=== PATIENT | male | born 1955 | race Two or more races ===

== ENCOUNTER 2016-12-10 03:43 | Emergency (ER) | payer BC, OTHER ==
[~2016-12-10] VITALS: Ht 182.9 cm; Wt 109.8 kg
[~2016-12-10 03:43] MED LIST: ASPI325T4 PO; DUTA0.5C PO; ESOM40CA PO; LISI10TA2 PO; LOTE5GEL OP; SIMV20TA3 PO
[2016-12-10 04:04] VITALS: BP 138/68
[2016-12-10] MEDS ORDERED: IBUPROFEN 800 MG TABLET. PO ONE (05:30)
[2016-12-10] MEDS ORDERED: SMZ/TMP 800/160MG TABLET. PO ONE (05:30)
[2016-12-10] MEDS ORDERED: SULF1TAB24 PO (05:59)
[2016-12-10] MEDS ORDERED: HYDR-971 PO (05:59)
--- NOTE | 2016-12-10 05:59 | PHYS DOC ---
Past Medical History Past Medical History: High Cholesterol, Hypertension, Kidney Stone Additional Past Medical Histor: torn retina, enlarged prostate Past Surgical History: Knee Replacement, Other Additional Past Surgical Histo: stent for kidney stones, torn retina surgery, sinus ,hernia Alcohol Use: Rarely Drug Use: None Adult General Chief Complaint Chief Complaint: THUMB HPI HPI Patient is a 61 year old female who presents with right thumb pain. Patient reports after he got a 40 yesterday his right thumb was painful and stiff. His squeezed it, and a small amount of pus came out through the lesion on the thumb. No clear trauma to the area, however patient says he works a lot with his hands he could've injured it or had a foreign body in it somehow. He has not taken anything for symptoms prior to arrival. No fever, no other complains. Review of Systems Review of Systems Constitutional: Denies fever or chills Respiratory: Denies cough or shortness of breath Cardiovascular: Denies chest pain GI: Denies abdominal pain, nausea, vomiting, or diarrhea Musculoskeletal: R thumb pain, drainage Neurologic: Denies headache, focal weakness or sensory changes Current Medications Current Medications Current Medications Medications (Trade) Dose Ordered Sig/Lisa Start Time Stop Time Status Last Admin Dose Admin Ibuprofen (Motrin) 800 mg 1X ONCE 12/10/16 05:30 12/10/16 05:31 DC 12/10/16 05:18 800 MG Trimethoprim/ Sulfamethoxazole (Bactrim Ds) 1 tab 1X ONCE 12/10/16 05:30 12/10/16 05:31 DC 12/10/16 05:31 1 TAB Allergies Allergies Allergies Coded Allergies Type Severity Reaction Last Updated Verified iodine Allergy Intermediate 02/02/16 Yes Physical Exam Physical Exam Constitutional: Well developed, well nourished, no acute distress, non-toxic appearance HENT: Normocephalic, atraumatic Eyes: EOMI, conjunctiva normal, no discharge Neck: No stridor Pulmonary: No respiratory distress Skin: Warm, dry Neurologic: Alert and oriented X 3 Musculoskeletal: R thumb mildly swollen and TTP, brisk cap refill, motor function preserved, no pain with passive extension; 3mm wound, unable to express appreciable amount of pus Current Patient Data Vital Signs Vital Signs Date Time Temp Pulse Resp B/P Pulse Ox O2 Delivery O2 Flow Rate FiO2 12/10/16 04:04 98.3 77 20 138/68 96 Room Air 98.3 EKG EKG [] Radiology/Procedures Radiology/Procedures X-ray R hand: IMPRESSION: No acute bony abnormality is detected. Course & Med Decision Making Course & Med Decision Making Pertinent Labs and Imaging studies reviewed. (See chart for details) Patient is 61-year-old male who presents with right thumb pain and swelling. Appears to be felon. X-ray of right hand ordered to rule out foreign body. No foreign body noted. I discussed with Dr. Cutler; as it has been draining, will not perform I&D at this time. Will cover with Bactrim per his recommendation. Oral pain medication ordered. Patient given instructions for close outpatient follow-up and strict return precautions. Dragon Disclaimer Dragon Disclaimer This electronic medical record was generated, in whole or in part, using a voice recognition dictation system. Departure Departure Impression: Primary Impression: Felon of finger of right hand Disposition: HOME, SELF-CARE Condition: STABLE Referrals: NO PCP (PCP) MILIND CUTLER II, MD Patient Instructions: Fingertip Infections Additional Instructions: Thank you for allowing us to provide care today in the Emergency Department. Take the provided medication as directed. Use caution when taking the pain medication as it can make you drowsy. Schedule a follow up appointment with an orthopedic surgeon using the provided contact information. You need to be seen this week for further evaluation. Return promptly to the Emergency Department if you develop any new or concerning symptoms as we discussed. Scripts Sulfamethoxazole/Trimethoprim (Bactrim Ds Tablet)1 Each Tablet1 Tab PO BID #20 TAB Prov:EVERETTE FORREST MD 12/10/16 Hydrocodone/Apap 5-325 (Irving 5-325 Tablet)1 Each Tablet1 Tab PO PRN Q6HRS PRN PAIN #20 TAB Prov:EVERETTE FORREST MD 12/10/16 EVERETTE FORREST MD Dec 10, 2016 05:59
--- NOTE | 2016-12-10 07:18 | RAD ---
Right hand, 3 views, 12/10/2016: History: Thumb swelling No fracture or dislocation is identified. There are minimal degenerative changes at scattered interphalangeal joints and the first MCP joint. A tiny 2 mm radiopaque foreign body is projected over the distal end of the index finger at the level of the terminal tuft. This is reportedly not the area of current clinical concern. IMPRESSION: No acute bony abnormality is detected.
== END 2016-12-10 06:15 | disposition home or self-care (01) ==
LOC: ER 03:43
DX: L03.011 Cellulitis of right finger (principal); E78.00 Pure hypercholesterolemia, unspecified; I10 Essential (primary) hypertension; N40.0 Benign prostatic hyperplasia without lower urinary tract symptoms; Z88.8 Allergy status to other drugs, medicaments and biological substances; Z87.442 Personal history of urinary calculi; Z96.0 Presence of urogenital implants
CPT/HCPCS: 73130; 99284

== ENCOUNTER 2019-09-07 08:59 | Emergency (ER) | payer OTHER ==
[~2019-09-07 08:59] MED LIST changes: -ASPI325T4 PO; +ASPI325T8 PO; +HYDR-3164 PO; +SIMV20TA18 PO; -SIMV20TA3 PO; +SULF1TAB24 PO
[2019-09-07 10:15] VITALS: BP 120/61
[2019-09-07] MEDS ORDERED: KETOROLAC 15 MG/ML VIAL. IV STA (10:35)
[2019-09-07] MEDS ORDERED: MORPHINE SULFATE 10 MG/ML VIAL. IV STA (10:35)
--- NOTE | 2019-09-07 10:40 | PHYS DOC ---
Past Medical History Past Medical History: High Cholesterol, Hypertension, Kidney Stone Additional Past Medical Histor: torn retina, enlarged prostate Past Surgical History: Knee Replacement, Other Additional Past Surgical Histo: stent for kidney stones, torn retina surgery, sinus ,hernia Alcohol Use: Rarely Drug Use: None Adult General Chief Complaint Chief Complaint: FLANK PAIN HPI HPI Patient is a 64 year old male who presents with cough, runny nose, body aches, loss of appetite has been ongoing for last week (Thursday). He states he's also been having fevers. The patient states he's started developing last couple days of right-sided flank pain. Patient is a history kidney stones concerned about having another kidney stone. Denies nausea. Complete ROS were reviewed and found to be within normal limits, except as documented in the HPI Current Medications Current Medications Current Medications Medications (Trade) Dose Ordered Sig/Lisa Start Time Stop Time Status Last Admin Dose Admin Ketorolac Tromethamine (Toradol 15mg Vial) 10 mg 1X STAT 09/07/19 10:35 09/07/19 10:37 DC 09/07/19 11:19 10 MG Morphine Sulfate (Morphine Sulfate) 5 mg 1X STAT 09/07/19 10:35 09/07/19 10:37 DC Sodium Chloride 1,000 ml @ 1,000 mls/hr 1X ONCE 09/07/19 10:45 09/07/19 11:44 DC 09/07/19 11:19 1,000 MLS/HR Allergies Allergies Allergies Coded Allergies Type Severity Reaction Last Updated Verified iodine Allergy Intermediate 02/02/16 Yes Physical Exam Physical Exam Constitutional: Well developed, well nourished, no acute distress, non-toxic appearance. [] HENT: Normocephalic, atraumatic, bilateral external ears normal, oropharynx moist, no oral exudates, nose normal. [] Eyes: PERRLA, EOMI, conjunctiva normal, no discharge. [] Neck: Normal range of motion, no tenderness, supple, no stridor. [] Cardiovascular:Heart rate regular rhythm, no murmur [] Lungs & Thorax: Bilateral breath sounds clear to auscultation [] Abdomen: Bowel sounds normal, soft, R flank tenderness, no masses, no pulsatile masses. [] Skin: Warm, dry, no erythema, no rash. [] Back: Right sided lower back tenderness, no CVA tenderness. [] Neurologic: Alert and oriented X 3, normal motor function, normal sensory function, no focal deficits noted. [] Psychologic: Affect normal, judgement normal, mood normal. [] Current Patient Data Vital Signs Vital Signs Date Time Temp Pulse Resp B/P (MAP) Pulse Ox O2 Delivery O2 Flow Rate FiO2 09/07/19 10:15 98.5 76 16 120/61 (80) 94 98.5 Lab Values Laboratory Tests Test 09/07/19 09:47 09/07/19 10:24 Urine Collection Type Unknown Urine Color [place] Urine Clarity Clear Urine pH 5.0 Urine Specific [place] 1.025 Urine Protein Negative mg/dL (NEG-TRACE) Urine Glucose (UA) Negative mg/dL (NEG) Urine Ketones (Stick) Negative mg/dL (NEG) Urine Blood Negative (NEG) Urine Nitrite Negative (NEG) Urine Bilirubin Negative (NEG) Urine Urobilinogen Dipstick 0.2 mg/dL (0.2 mg/dL) Urine Leukocyte Esterase Negative (NEG) Urine RBC 0 /HPF (0-2) Urine WBC Occ /HPF (0-4) Urine Squamous Epithelial Cells Few /LPF Urine Amorphous Sediment Present /HPF Urine Bacteria 0 /HPF (0-FEW) Urine Mucus Marked /LPF White Blood Count 4.3 x10^3/uL (4.0-11.0) Red Blood Count 5.08 x10^6/uL (4.30-5.70) Hemoglobin 15.8 g/dL (13.0-17.5) Hematocrit 45.9 % (39.0-53.0) Mean Corpuscular Volume 90 fL (79-100) Mean Corpuscular Hemoglobin 31 pg (25-35) Mean Corpuscular Hemoglobin Concent 34 g/dL (31-37) Red Cell Distribution Width 13.8 % (11.5-14.5) Platelet Count 209 x10^3/uL (140-400) Neutrophils (%) (Auto) 56 % (31-73) Lymphocytes (%) (Auto) 30 % (24-48) Monocytes (%) (Auto) 12 % (0-9) H Eosinophils (%) (Auto) 2 % (0-3) Basophils (%) (Auto) 1 % (0-3) Neutrophils # (Auto) 2.4 x10^3/uL (1.8-7.7) Lymphocytes # (Auto) 1.3 x10^3/uL (1.0-4.8) Monocytes # (Auto) 0.5 x10^3/uL (0.0-1.1) Eosinophils # (Auto) 0.1 x10^3/uL (0.0-0.7) Basophils # (Auto) 0.0 x10^3/uL (0.0-0.2) Sodium Level 137 mmol/L (136-145) Potassium Level 4.1 mmol/L (3.5-5.1) Chloride Level 101 mmol/L (98-107) Carbon Dioxide Level 27 mmol/L (21-32) Anion Gap 9 (6-14) Blood Urea Nitrogen 12 mg/dL (8-26) Creatinine 0.8 mg/dL (0.7-1.3) Estimated GFR (Cockcroft-Gault) 98.0 BUN/Creatinine Ratio 15 (6-20) Glucose Level 100 mg/dL (70-99) H Calcium Level 9.4 mg/dL (8.5-10.1) Total Bilirubin 0.4 mg/dL (0.2-1.0) Aspartate Amino Transferase (AST) 59 U/L (15-37) H Alanine Aminotransferase (ALT) 60 U/L (16-63) Alkaline Phosphatase 79 U/L (46-116) Total Protein 7.9 g/dL (6.4-8.2) Albumin 3.9 g/dL (3.4-5.0) Albumin/Globulin Ratio 1.0 (1.0-1.7) Procalcitonin < 0.10 ng/mL (0.00-0.10) Laboratory Tests 09/07/19 10:24 Laboratory Tests 09/07/19 10:24 EKG EKG [] Radiology/Procedures Radiology/Procedures [facility] [address] [place] [address] IMAGING REPORT Signed PATIENT: UZMA FERRER ACCOUNT: [id number] : 1955 LOCATION: ER AGE: 64 SEX: M EXAM STATUS: REG ER ORD. PHYSICIAN: FAIZAN ESPINO APRN REASON: R sided Flank pain PROCEDURE: CT ABDOMEN PELVIS WO CONTRAST CT ABDOMEN PELVIS WO CONTRAST History: Right flank pain. Technique: Noncontrast examination of the abdomen and pelvis. Coronal and sagittal reconstructions were performed. Exposure: One or more of the following individualized dose reduction techniques were utilized for this examination: 1. Automated exposure control 2. Adjustment of the mA and/or kV according to patient size 3. Use of iterative reconstruction technique. Comparison: October 08, 2013. Findings: Lower chest: No consolidation or pleural effusion. Abdomen and pelvis: Hepatic steatosis with focal fatty sparing along the gallbladder fossa. The spleen, adrenal glands, pancreas and gallbladder are unremarkable. Normal noncontrast appearance of the kidneys. No hydronephrosis. No renal, ureteral or urinary bladder stone. Decompressed urinary bladder. Colonic diverticulosis. Normal appendix. No evidence of bowel obstruction. No pathologic lymphadenopathy. No ascites. Large left inguinal fat containing hernia. Small right inguinal fat containing hernia. Tiny umbilical fat-containing hernia. Bones: No pathologic osseous lesions. Multilevel lumbar spondylosis. Impression: 1. No acute intra-abdominal or pelvic pathology. No obstructing urolithiasis. 2. Hepatic steatosis. Electronically signed by: Dwight Guillermo DO (09/07/2019 11:03 AM) [id number] DICTATED and SIGNED BY: DWIGHT GUILLERMO DO DATE: 09/07/19 1103 [][facility] [address] [place] [address] IMAGING REPORT Signed PATIENT: UZMA FERRER ACCOUNT: [id number] : 1955 LOCATION: ER AGE: 64 SEX: M EXAM STATUS: REG ER ORD. PHYSICIAN: FAIZAN ESPINO APRN REASON: cough, fever PROCEDURE: CHEST PA & LATERAL Chest, PA and Lateral: Technique: PA and lateral views of the chest were obtained. History: Cough, fever. Comparison: 02/02/2016. Findings: The cardiomediastinal silhouette grossly appears unremarkable. Mild bibasilar lung airspace opacities likely atelectasis or infiltrates. IMPRESSION: Minimal bibasilar lung airspace opacities likely atelectasis or infiltrates. Electronically signed by: Laci Le MD (09/07/2019 11:34 AM) [id number] DICTATED and SIGNED BY: LACI LE MD DATE: 09/07/19 1134 Course & Med Decision Making Course & Med Decision Making Pertinent Labs and Imaging studies reviewed. (See chart for details) Will get labs, CT, Chest x-ray and urine. Will also give supportive care. I am concerned that patient has had the flu over the last week. Will check for post- influenza pneumonitis and Will also get CT to rule out kidney stone. Labs were unremarkable. Chest x-ray shows pneumonia will place on Doxycycline. Dragon Disclaimer Dragon Disclaimer This electronic medical record was generated, in whole or in part, using a voice recognition dictation system. Departure Departure Impression: Primary Impression: Pneumonia Disposition: HOME, SELF-CARE Condition: STABLE Referrals: NO PCP (PCP) Patient Instructions: Pneumonia, Adult Additional Instructions: Thank you for visiting [facility]. We appreciate you trusting us with your care. If any additional problems come up don't hesitate to return to visit us. Please follow up with your primary care provider so they can plan additional care if needed and know about the problem that you had. If symptoms worsen come back to the Emergency Department. Any concerning symptoms that start such as chest pain, shortness of air, weakness or numbness on one side of the body, running high fevers or any other concerning symptoms return to the ER. Please fill your medications at any pharmacy and follow the prescription instructions. Please drink plenty of fluids. If unable to keep fluids down please return to ER. Please get Tylenol and Ibuprofen over the counter. Give each medication every 6 hours as directed by the medication labels. In order to utilize the peak of the medications stagger the medications to where the child is getting one of the medications every 3 hours. For example if you give Ibuprofen at 3 PM, you then give Tylenol at 6 PM and Ibuprofen again at 9 PM, and then Tylenol at midnight. Please get Zyrtec over the counter and take per label instructions for runny nose. Scripts Doxycycline Hyclate (DOXYCYCLINE HYCLATE) 100 Mg Capsule 1 CAP PO BID for 10 Days, #20 CAP Prov: ESPINOFAIZAN APRN 09/07/19 Problem Qualifiers Primary Impression: Pneumonia Pneumonia type: due to unspecified organism Laterality: right Lung location: lower lobe of lung Qualified Codes: J18.9 - Pneumonia, unspecified organism FAIZAN ESPINO APRN Sep 07, 2019 10:40
[2019-09-07] MEDS ORDERED: IV NORMAL SALINE 1000ML BAG 1,000 ML IV ONE (10:45)
[2019-09-07 10:50] LABS: BASO % 1 % (0-3); EOS # 0.1 x10^3/uL (0.0-0.7); EOS % 2 % (0-3); HEMATOCRIT 45.9 % (39.0-53.0); HEMOGLOBIN 15.8 g/dL (13.0-17.5); LYMPH # 1.3 x10^3/uL (1.0-4.8); LYMPH % 30 % (24-48); MEAN CORPUSCULAR HEMOGLOBIN 31 pg (25-35); MEAN CORPUSCULAR HGB CONC 34 g/dL (31-37); MEAN CORPUSCULAR VOLUME 90 fL (79-100); MONO # 0.5 x10^3/uL (0.0-1.1); MONO % 12 % (0-9); NEUT # 2.4 x10^3/uL (1.8-7.7); NEUT % 56 % (31-73); PLATELET COUNT 209 x10^3/uL (140-400); RED BLOOD COUNT 5.08 x10^6/uL (4.30-5.70); RED CELL DISTRIBUTION WIDTH 13.8 % (11.5-14.5); WHITE BLOOD COUNT 4.3 x10^3/uL (4.0-11.0)
[2019-09-07 11:00] LABS: BILIRUBIN,URINE NEGATIVE (NEG); CLARITY,URINE CLEAR; COLOR,URINE AMBER; NITRITE,URINE NEGATIVE (NEG); PROTEIN,URINE NEGATIVE (NEG-TRACE); UROBILINOGEN,URINE 0.2 mg/dL (0.2 mg/dL)
--- NOTE | 2019-09-07 11:05 | RAD ---
CT ABDOMEN PELVIS WO CONTRAST History: Right flank pain. Technique: Noncontrast examination of the abdomen and pelvis. Coronal and sagittal reconstructions were performed. Exposure: One or more of the following individualized dose reduction techniques were utilized for this examination: 1. Automated exposure control 2. Adjustment of the mA and/or kV according to patient size 3. Use of iterative reconstruction technique. Comparison: October 08, 2013. Findings: Lower chest: No consolidation or pleural effusion. Abdomen and pelvis: Hepatic steatosis with focal fatty sparing along the gallbladder fossa. The spleen, adrenal glands, pancreas and gallbladder are unremarkable. Normal noncontrast appearance of the kidneys. No hydronephrosis. No renal, ureteral or urinary bladder stone. Decompressed urinary bladder. Colonic diverticulosis. Normal appendix. No evidence of bowel obstruction. No pathologic lymphadenopathy. No ascites. Large left inguinal fat containing hernia. Small right inguinal fat containing hernia. Tiny umbilical fat-containing hernia. Bones: No pathologic osseous lesions. Multilevel lumbar spondylosis. Impression: 1. No acute intra-abdominal or pelvic pathology. No obstructing urolithiasis. 2. Hepatic steatosis. Electronically signed by: Dwight Guillermo DO (09/07/2019 11:03 AM) [facility]
[2019-09-07 11:12] LABS: CALCIUM 9.4 mg/dL (8.5-10.1); CREATININE 0.8 mg/dL (0.7-1.3); POTASSIUM 4.1 mmol/L (3.5-5.1)
[2019-09-07 11:19] LABS: ALBUMIN 3.9 g/dL (3.4-5.0); TOTAL BILIRUBIN 0.4 mg/dL (0.2-1.0); TOTAL PROTEIN 7.9 g/dL (6.4-8.2)
[2019-09-07 11:27] LABS: BACTERIA,URINE 0 /HPF (0-FEW); RBC,URINE 0 /HPF (0-2); SQUAMOUS EPITHELIAL CELL,UR FEW /LPF; WBC,URINE OCC /HPF (0-4)
[2019-09-07 11:28] LABS: AMORPHOUS SEDIMENT,UR PRESENT /HPF
--- NOTE | 2019-09-07 11:37 | RAD ---
Chest, PA and Lateral: Technique: PA and lateral views of the chest were obtained. History: Cough, fever. Comparison: 02/02/2016. Findings: The cardiomediastinal silhouette grossly appears unremarkable. Mild bibasilar lung airspace opacities likely atelectasis or infiltrates. IMPRESSION: Minimal bibasilar lung airspace opacities likely atelectasis or infiltrates. Electronically signed by: Laci Le MD (09/07/2019 11:34 AM) [id number]
[2019-09-07] MEDS ORDERED: DOXY100C2 PO (11:48)
[2019-09-10] MEDS ORDERED: IV NORMAL SALINE 1000ML BAG 1,000 ML IV ONE (11:15)
[2019-09-10] MEDS ORDERED: ONDANSETRON PF 4 MG/2 ML VIAL. IVP ONE (11:15)
== END 2019-09-07 12:22 | disposition home or self-care (01) ==
LOC: ER 08:59
DX: J18.9 Pneumonia, unspecified organism (principal); E78.00 Pure hypercholesterolemia, unspecified; I10 Essential (primary) hypertension; Z87.442 Personal history of urinary calculi; Z88.8 Allergy status to other drugs, medicaments and biological substances
CPT/HCPCS: 36415; 71046; 74176; 80053; 81001; 84145; 85025; 96374; 99285; J1885; J7030

== ENCOUNTER 2019-09-10 10:40 | Emergency (ER) | payer OTHER ==
[~2019-09-10 10:40] MED LIST changes: +DOXY100C2 PO
[2019-09-10] MEDS ORDERED: IV NORMAL SALINE 1000ML BAG 1,000 ML IV SCH (11:17)
[2019-09-10] MEDS ORDERED: ONDANSETRON PF 4 MG/2 ML VIAL. IVP ONE (11:30)
[2019-09-10] MEDS ORDERED: ALBUTEROL SULFATE 2.5 MG/3 ML NEBU. NEB ONE (11:30)
--- NOTE | 2019-09-10 11:35 | PHYS DOC ---
Past Medical History Past Medical History: High Cholesterol, Hypertension, Kidney Stone Additional Past Medical Histor: torn retina, enlarged prostate Past Surgical History: Knee Replacement, Other Additional Past Surgical Histo: stent for kidney stones, torn retina surgery, sinus ,hernia Alcohol Use: Rarely Drug Use: None Adult General Chief Complaint Chief Complaint: NAUSEA/VOMITING/DIARRHA HPI HPI Patient is a 64 year old male who presents with patient was here on Thursday and diagnosed with pneumonia and given hydrocodone and doxycycline. Patient states he has been taking the doxycycline and hydrocodone. He states he just doesn't feel right and isn't getting better. Patient is educated that pneumonia takes time and can take up to couple weeks even to feel better. Patient states he still having cough, wheezing, nausea and feels like "shaking on the inside". He denies chest pain, dizziness, headache, syncope, numbness or tingling, fever, shortness of breath, visual changes, weakness. Review of Systems Review of Systems Respiratory: cough or denies shortness of breath [] Cardiovascular: No additional information not addressed in HPI [] GI: Denies abdominal pain. +nausea, +vomiting, denies bloody stools or diarrhea [] All other systems were reviewed and found to be within normal limits, except as documented in this note. Current Medications Current Medications Current Medications Medications (Trade) Dose Ordered Sig/Lisa Start Time Stop Time Status Last Admin Dose Admin Albuterol Sulfate (Ventolin Neb Soln) 2.5 mg 1X ONCE 09/10/19 11:30 09/10/19 11:31 DC 09/10/19 11:37 2.5 MG Ondansetron HCl (Zofran) 4 mg 1X ONCE 09/10/19 11:30 09/10/19 11:31 DC 09/10/19 11:49 4 MG Sodium Chloride 1,000 ml @ 1,000 mls/hr Q1H 09/10/19 11:17 09/10/19 12:16 DC 09/10/19 11:49 1,000 MLS/HR Allergies Allergies Allergies Coded Allergies Type Severity Reaction Last Updated Verified iodine Allergy Intermediate 02/02/16 Yes Physical Exam Physical Exam Constitutional: Well developed, well nourished, no acute distress, non-toxic appearance. [] HENT: Normocephalic, atraumatic, bilateral external ears normal, oropharynx moist, no oral exudates, nose normal. [] Eyes: PERRLA, EOMI, conjunctiva normal, no discharge. [] Neck: Normal range of motion, no tenderness, supple, no stridor. [] Cardiovascular:Heart rate regular rhythm, no murmur [] Lungs & Thorax: Bilateral upper breath sounds expiratory wheezes and lower lung lobes diminished to auscultation [] Abdomen: Bowel sounds normal, soft, no tenderness, no masses, no pulsatile masses. [] Skin: Warm, dry, no erythema, no rash. [] Back: No tenderness, no CVA tenderness. [] Extremities: No tenderness, no cyanosis, no clubbing, ROM intact, no edema. [] Neurologic: Alert and oriented X 3, normal motor function, normal sensory function, no focal deficits noted. [] Psychologic: Affect normal, judgement normal, mood normal. [] Current Patient Data Vital Signs Vital Signs Date Time Temp Pulse Resp B/P (MAP) Pulse Ox O2 Delivery O2 Flow Rate FiO2 09/10/19 11:40 93 Room Air 09/10/19 10:52 98.0 70 18 120/61 (80) 98.0 Lab Values Laboratory Tests Test 09/10/19 11:17 09/10/19 11:26 O2 Saturation 93 % (92-99) Arterial Blood pH 7.40 (7.35-7.45) Arterial Blood pCO2 at Patient Temp 42 mmHg (35-46) Arterial Blood pO2 at Patient Temp 65 mmHg (65-108) Arterial Blood HCO3 25 mmol/L (21-28) Arterial Blood Base Excess 0 mmol/L (-3-3) Oxyhemoglobin 92.6 % Methemoglobin 0.3 % (0.0-1.9) Carbon Monoxide, Quantitative 0.3 % (0.0-1.9) FiO2 21 White Blood Count 4.0 x10^3/uL (4.0-11.0) Red Blood Count 4.76 x10^6/uL (4.30-5.70) Hemoglobin 14.7 g/dL (13.0-17.5) Hematocrit 43.2 % (39.0-53.0) Mean Corpuscular Volume 91 fL (79-100) Mean Corpuscular Hemoglobin 31 pg (25-35) Mean Corpuscular Hemoglobin Concent 34 g/dL (31-37) Red Cell Distribution Width 13.6 % (11.5-14.5) Platelet Count 236 x10^3/uL (140-400) Neutrophils (%) (Auto) 50 % (31-73) Lymphocytes (%) (Auto) 42 % (24-48) Monocytes (%) (Auto) 7 % (0-9) Eosinophils (%) (Auto) 1 % (0-3) Basophils (%) (Auto) 1 % (0-3) Neutrophils # (Auto) 2.0 x10^3/uL (1.8-7.7) Lymphocytes # (Auto) 1.7 x10^3/uL (1.0-4.8) Monocytes # (Auto) 0.3 x10^3/uL (0.0-1.1) Eosinophils # (Auto) 0.0 x10^3/uL (0.0-0.7) Basophils # (Auto) 0.0 x10^3/uL (0.0-0.2) Prothrombin Time 12.2 SEC (11.7-14.0) Prothrombin Time INR 0.9 (0.8-1.1) Sodium Level 142 mmol/L (136-145) Potassium Level 4.5 mmol/L (3.5-5.1) Chloride Level 105 mmol/L (98-107) Carbon Dioxide Level 25 mmol/L (21-32) Anion Gap 12 (6-14) Blood Urea Nitrogen 15 mg/dL (8-26) Creatinine 0.7 mg/dL (0.7-1.3) Estimated GFR (Cockcroft-Gault) 114.3 BUN/Creatinine Ratio 21 (6-20) H Glucose Level 122 mg/dL (70-99) H Lactic Acid Level 1.8 mmol/L (0.4-2.0) Calcium Level 9.4 mg/dL (8.5-10.1) Total Bilirubin 0.2 mg/dL (0.2-1.0) Aspartate Amino Transferase (AST) 35 U/L (15-37) Alanine Aminotransferase (ALT) 48 U/L (16-63) Alkaline Phosphatase 74 U/L (46-116) Troponin I Quantitative < 0.017 ng/mL (0.000-0.055) Total Protein 7.2 g/dL (6.4-8.2) Albumin 3.6 g/dL (3.4-5.0) Albumin/Globulin Ratio 1.0 (1.0-1.7) Laboratory Tests 09/10/19 11:26 Laboratory Tests 09/10/19 11:26 EKG EKG Sinus Rhythm and no STEMI Interpretation Time: [address] Subramanian Radiology/Procedures Radiology/Procedures [] Impressions: [facility] [address] [place] [address] IMAGING REPORT Signed PATIENT: UZMA FERRER ACCOUNT: [id number] : 1955 LOCATION: ER AGE: 64 SEX: M EXAM STATUS: REG ER ORD. PHYSICIAN: FAITH BLACK APRN REASON: pneumonia dx, "worsening sx" PROCEDURE: CHEST PA & LATERAL PA and lateral views of the chest dated 09/10/2019. Comparison made to 09/07/2019. Clinical data indication: Follow-up pneumonia. FINDINGS: PA and lateral views obtained. Heart and mediastinal contours are stable. Lungs are clear. No consolidation or pleural effusion. No pneumothorax. Mildly prominent linear markings at both lung bases, unchanged. IMPRESSION: No acute radiographic abnormality. Electronically signed by: Subhash Chavez MD (09/10/2019 12:23 PM) [facility] DICTATED and SIGNED BY: SUBHASH CHAVEZ MD DATE: 09/10/19 1223 Course & Med Decision Making Course & Med Decision Making Alert and oriented. Speaks in full clear sentences. Ambulatory with a steady gait. PERRLA. Upper lung lobes have expiratory wheezing lower lung lobes are diminished. Abdomen soft and nontender. No pedal edema. Skin pink warm and dry. Vital signs within normal limits. Afebrile. She states he vomited one time today. He states otherwise been eating and drinking normally. He states he just doesn't feel good. States she's never had pneumonia before so he is unsure of how he should be feeling but he's had the flu before in the past and he didn't feel like this. Blood Work unremarkable. Chest x-ray with no findings in no acute findings. Patient states he is feeling better. I told with a steady gait. Patient remained stable. I will give the patient a Medrol Dosepak and an inhaler to help with his symptoms further. Patient to continue taking the antibiotic and hydrocodone as needed. Gilmer Disclaimer Gilmer Disclaimer This electronic medical record was generated, in whole or in part, using a voice recognition dictation system. Departure Departure Impression: Primary Impression: Cough in adult Additional Impression: Wheezing Disposition: HOME, SELF-CARE Condition: STABLE Referrals: NO PCP (PCP) Patient Instructions: Cough, Adult Additional Instructions: Continue taking all medications as prescribed. Follow up with a primary care provider. Drink plenty of fluids. Rest as much as possible. Scripts Albuterol Sulfate (Proair Hfa) 8.5 Gm Hfa.aer.ad 1 PUFF INH PRN Q6HRS PRN for SHORTNESS OF BREATH, #1 INHALER Prov: FAITH BLACK APRN 09/10/19 Methylprednisolone (MEDROL) 4 Mg Tab.ds.pk 1 PKG PO UD, #1 PKG Start taking tomorrow 09/10/19. Prov: FAITH BLACK APRN 09/10/19 Problem Qualifiers FAITH BLACK TOBACCO SCRAP SIFTER Sep 10, 2019 11:34
[2019-09-10 11:48] LABS: BASO % 1 % (0-3); EOS % 1 % (0-3); HEMATOCRIT 43.2 % (39.0-53.0); HEMOGLOBIN 14.7 g/dL (13.0-17.5); LYMPH # 1.7 x10^3/uL (1.0-4.8); LYMPH % 42 % (24-48); MEAN CORPUSCULAR HEMOGLOBIN 31 pg (25-35); MEAN CORPUSCULAR HGB CONC 34 g/dL (31-37); MEAN CORPUSCULAR VOLUME 91 fL (79-100); MONO # 0.3 x10^3/uL (0.0-1.1); MONO % 7 % (0-9); NEUT % 50 % (31-73); PLATELET COUNT 236 x10^3/uL (140-400); RED BLOOD COUNT 4.76 x10^6/uL (4.30-5.70); RED CELL DISTRIBUTION WIDTH 13.6 % (11.5-14.5)
[2019-09-10 11:48] LABS: BASE EXCESS COOX 0 mmol/L (-3-3); HCO3 COOX 25 mmol/L (21-28); METHEMOGLOBIN 0.3 % (0.0-1.9); OXYHEMOGLOBIN 92.6 %; PCO2 COOX 42 mmHg (35-46); PO2 COOX 65 mmHg (65-108); SAT O2 COOX 93 % (92-99)
[2019-09-10 11:56] LABS: CALCIUM 9.4 mg/dL (8.5-10.1); CREATININE 0.7 mg/dL (0.7-1.3); GFR 114.3; POTASSIUM 4.5 mmol/L (3.5-5.1)
[2019-09-10 12:02] LABS: ALBUMIN 3.6 g/dL (3.4-5.0); PROTHROMBIN TIME PATIENT 12.2 SEC (11.7-14.0); TOTAL BILIRUBIN 0.2 mg/dL (0.2-1.0); TOTAL PROTEIN 7.2 g/dL (6.4-8.2)
--- NOTE | 2019-09-10 12:26 | RAD ---
PA and lateral views of the chest dated 09/10/2019. Comparison made to 09/07/2019. Clinical data indication: Follow-up pneumonia. FINDINGS: PA and lateral views obtained. Heart and mediastinal contours are stable. Lungs are clear. No consolidation or pleural effusion. No pneumothorax. Mildly prominent linear markings at both lung bases, unchanged. IMPRESSION: No acute radiographic abnormality. Electronically signed by: Subhash Chavez MD (09/10/2019 12:23 PM) [facility]
[2019-09-10 13:51] LABS: BILIRUBIN,URINE NEGATIVE (NEG); CLARITY,URINE CLEAR; COLOR,URINE YELLOW; NITRITE,URINE NEGATIVE (NEG); PH,URINE 5.5; PROTEIN,URINE NEGATIVE (NEG-TRACE); UROBILINOGEN,URINE 0.2 mg/dL (0.2 mg/dL)
[2019-09-10] MEDS ORDERED: ALBU2.5V8 INH (13:53)
[2019-09-10] MEDS ORDERED: METH4TAB2 PO (13:53)
[2019-09-10 14:00] LABS: BARBITURATES NEG (NEG); BENZODIAZEPINES NEG (NEG); CANNABINOIDS NEG (NEG); COCAINE NEG (NEG); METHADONE NEG (NEG); OPIATES NEG (NEG); PHENCYCLIDINE NEG (NEG)
[2019-09-10 14:03] LABS: AMPHETAMINE/METHAMPHETAMINE NEG (NEG)
[2019-09-10 14:27] LABS: HYALINE CASTS, URINE MODERATE /HPF; SQUAMOUS EPITHELIAL CELL,UR MOD /LPF
[2019-09-10 14:28] LABS: BACTERIA,URINE 0 /HPF (0-FEW); RBC,URINE OCC /HPF (0-2)
[2019-09-10 15:05] VITALS: BP 158/78
--- NOTE | 2019-09-12 06:06 | EKG ---
[facility] [address] [place] [address] Test Date: 2019-09-10 Test Time: 11:28:18 Pat Name: UZMA FERRER Department: Room: Gender: M [employer]: : [id number] Requested By: FAITH BLACK Order Number: [id number] Reading MD: Measurements Intervals [place] Rate: 63 P: 146 RI: 192 QRS: -180 QRSD: 92 T: 167 QT: 384 QTc: 395 Interpretive Statements SINUS RHYTHM * POSSIBLE REVERSAL OF THE ARM LEADS ABNORMAL RIGHT SUPERIOR AXIS DEVIATION QRS(T) CONTOUR ABNORMALITY CONSISTENT WITH HIGH LATERAL INFARCT AGE UNDETERMINED T ABNORMALITY IN INFERIOR LEADS NON SPECIFIC ST DEPRESSION ABNORMAL ECG No previous ECG available for comparison
== END 2019-09-10 15:04 | disposition home or self-care (01) ==
LOC: ER 10:40
DX: R05 Cough (principal); R06.2 Wheezing; R11.2 Nausea with vomiting, unspecified; E78.00 Pure hypercholesterolemia, unspecified; I10 Essential (primary) hypertension; Z87.442 Personal history of urinary calculi; Z96.0 Presence of urogenital implants; Z88.8 Allergy status to other drugs, medicaments and biological substances
CPT/HCPCS: 36415; 36600; 71046; 80053; 80307; 81001; 82805; 83605; 84484; 85025; 85610; 87040; 93005; 94640; 96361; 96374; 99285; J2405; J7030; J7613